=== PATIENT | female | born 1965 | race Caucasian/White ===

== ENCOUNTER → 2020-07-19 | Outpatient (CLI) | payer BC ==
[~2020-07-19] MED LIST: BUSPAR 10MG10 MG PO; CYMBALTA60 MG PO; ELAVIL 25 MG TA25 MG PO; FLONASE 0.05% N16 GM; IMDUR ER TAB 3030 MG PO; LIPITOR TAB 2020 MG PO; MICROZIDE12.5 MG PO; MOBIC15 MG PO; NITROSTAT0.4 MG SL; PLAVIX 75 MG TA75 MG PO; PREDNISONE10 MG PO; PREDNISONE5 MG PO; PROTONIX40 MG PO; SINGULAIR10 MG PO; VIT D; ZOLOFT50 MG PO; ZYRTEC10 M3 PO
== END ==
LOC: US 13:48
DX: M79.605 Pain in left leg (principal)
CPT/HCPCS: 93971

== ENCOUNTER → 2020-07-19 | Outpatient (CLI) | payer BC ==
[2020-07-19 09:49] LABS: RED BLOOD COUNT 4.68 M/UL (4.00-5.10)
[2020-07-19 10:08] LABS: BUN/CREATININE RATIO 24 (0-10)
[2020-07-20 09:15] LABS: VITAMIN D, 25-HYDROXY 64.5 ng/mL (30.0-100.0)
[2020-07-20 11:15] LABS: C-PEPTIDE, SERUM 2.8 ng/mL (1.1-4.4)
== END ==
LOC: LAB 09:04
PROVIDERS: Family Medicine
DX: E11.9 Type 2 diabetes mellitus without complications (principal); E78.5 Hyperlipidemia, unspecified; I10 Essential (primary) hypertension; E55.9 Vitamin D deficiency, unspecified
CPT/HCPCS: 36415; 80053; 80061; 82043; 84439; 84443; 84481; 84681; 85027

== ENCOUNTER → 2020-07-26 | Outpatient (CLI) | payer BC ==
[2020-07-27 11:16] LABS: RHEUMATOID ARTHRITIS FACTOR <10.0 IU/mL (0.0-13.9)
[2020-07-29 00:09] LABS: CCP ANTIBODIES IGG/IGA 7 units (0-19)
== END ==
LOC: LAB 12:19
PROVIDERS: Nurse Practitioner Family
DX: D89.9 Disorder involving the immune mechanism, unspecified (principal); M25.50 Pain in unspecified joint; R76.8 Other specified abnormal immunological findings in serum; M19.90 Unspecified osteoarthritis, unspecified site
CPT/HCPCS: 36415; 82550; 83520; 85652; 86140; 86200; 86431

== ENCOUNTER → 2020-08-12 | Outpatient (CLI) | payer BC | LOC: MAMO 08:59 | DX: Z12.31 Encounter for screening mammogram for malignant neoplasm of breast (principal) | CPT/HCPCS: 77063; 77067 ==

== ENCOUNTER → 2021-04-08 | Outpatient (CLI) | payer BC ==
[2021-04-08 12:09] LABS: HEMOGLOBIN 13.8 gm/dl (12.3-15.3); RED BLOOD COUNT 4.59 M/UL (4.00-5.10); WHITE BLOOD COUNT 3.3 K/UL (4.5-11.0)
[2021-04-08 12:27] LABS: BUN/CREATININE RATIO 29 (0-10)
== END ==
LOC: LAB 11:42
PROVIDERS: Family Medicine
DX: E78.5 Hyperlipidemia, unspecified (principal); E11.9 Type 2 diabetes mellitus without complications; I10 Essential (primary) hypertension; E55.9 Vitamin D deficiency, unspecified
CPT/HCPCS: 36415; 80053; 80061; 83036; 84439; 84443; 85027

== ENCOUNTER → 2021-09-13 | Outpatient (CLI) | payer BC ==
[2021-09-13 10:58] LABS: HEMOGLOBIN 13.9 gm/dl (12.3-15.3); RED BLOOD COUNT 4.62 M/UL (4.00-5.10); WHITE BLOOD COUNT 3.5 K/UL (4.5-11.0)
[2021-09-13 11:12] LABS: BUN/CREATININE RATIO 28 (0-10)
[2021-09-14 08:16] LABS: ANTISTREPTOLYSIN O AB <20.0 IU/mL (0.0-200.0); HCV ANTIBODY <0.1 (0.0-0.9); VITAMIN D, 25-HYDROXY 54.9 ng/mL (30.0-100.0)
[2021-09-14 10:16] LABS: CREATININE, URINE 106.7 mg/dL (Not Estab.); MICROALB/CREAT RATIO <3 (0-29)
[2021-09-14 15:11] LABS: TREPONEMA PALLIDUM ANTIBODIES Non Reactive (Non Reactive)
[2021-09-14 16:13] LABS: ENDOMYSIAL ANTIBODY IGA Negative (Negative); IMMUNOGLOBULIN A, QN, SERUM 111 mg/dL (87-352); T-TRANSGLUTAMINASE (TTG) IGA <2 U/mL (0-3); T-TRANSGLUTAMINASE (TTG) IGG 4 U/mL (0-5)
== END ==
LOC: LAB 09:30
PROVIDERS: Nurse Practitioner Family
DX: M51.16 Intervertebral disc disorders with radiculopathy, lumbar region (principal); M50.322 Other cervical disc degeneration at C5-C6 level; M54.9 Dorsalgia, unspecified; M25.552 Pain in left hip; M25.551 Pain in right hip; M25.561 Pain in right knee; M25.562 Pain in left knee; M25.511 Pain in right shoulder; M25.512 Pain in left shoulder; R06.02 Shortness of breath; M17.0 Bilateral primary osteoarthritis of knee; M16.0 Bilateral primary osteoarthritis of hip; M51.37 Other intervertebral disc degeneration, lumbosacral region; M51.34 Other intervertebral disc degeneration, thoracic region; M19.011 Primary osteoarthritis, right shoulder; M19.012 Primary osteoarthritis, left shoulder; R25.2 Cramp and spasm; K90.0 Celiac disease; R53.83 Other fatigue; R41.3 Other amnesia; R73.9 Hyperglycemia, unspecified; K22.70 Barrett's esophagus without dysplasia; I10 Essential (primary) hypertension; G56.00 Carpal tunnel syndrome, unspecified upper limb; J30.9 Allergic rhinitis, unspecified; M25.50 Pain in unspecified joint; I25.10 Atherosclerotic heart disease of native coronary artery without angina pectoris; I51.89 Other ill-defined heart diseases; E78.5 Hyperlipidemia, unspecified; E55.9 Vitamin D deficiency, unspecified
CPT/HCPCS: 36415; 71046; 72040; 72072; 72100; 73030; 73522; 73562; 80053; 80061; 81001; 82043; 82175; 82570; 82607; 82728; 82746; 82784; 83036; 83540; 83550; 83655; 83735; 83825; 84439; 84443; 84630; 85025; 85652; 86060; 86140; 86780; 86803

== ENCOUNTER → 2021-10-06 | Outpatient (CLI) | payer BC | LOC: ECHO 10:48 → NM 13:00 | DX: I20.8 Other forms of angina pectoris (principal); I07.1 Rheumatic tricuspid insufficiency | CPT/HCPCS: ECHO; 78452; 93017; 93306; A9502; J2785 ==

== ENCOUNTER → 2021-10-17 | Outpatient (CLI) | payer BC | LOC: MAMO 08:56 | DX: Z12.31 Encounter for screening mammogram for malignant neoplasm of breast (principal); Z13.820 Encounter for screening for osteoporosis; Z78.0 Asymptomatic menopausal state; R14.0 Abdominal distension (gaseous); R10.9 Unspecified abdominal pain; G89.29 Other chronic pain; K76.0 Fatty (change of) liver, not elsewhere classified | CPT/HCPCS: 76705; 77063; 77067; 77080 ==

== ENCOUNTER → 2021-11-10 | Outpatient (CLI) | payer BC | LOC: NM 09:00 | DX: R14.0 Abdominal distension (gaseous) (principal); R10.11 Right upper quadrant pain | CPT/HCPCS: 78227; A9537 ==

== ENCOUNTER → 2021-11-20 | Outpatient (CLI) | payer BC | LOC: RAD 16:08 | DX: R53.83 Other fatigue (principal); R76.8 Other specified abnormal immunological findings in serum | CPT/HCPCS: 71046 ==